=== PATIENT | female | born 1970 | race Caucasian/White ===

== ENCOUNTER 2016-10-15 06:10 | Day surgery (SDC) | payer MEDICARE, OTHER ==
[2016-10-14 14:16] LABS: HEMATOCRIT 42.1 % (36.0-48.0); HEMOGLOBIN 14.1 g/dL (12.0-16.0)
[2016-10-14 14:29] LABS: BUN (BLOOD UREA NITROGEN) 10 MG/DL (6-23); CALCIUM, SERUM 9.8 MG/DL (8.5-10.4); CHLORIDE, SERUM 107 MMOL/L (96-112); CO2 (CARBON DIOXIDE) 28 MMOL/L (24-34); CREATININE 0.89 MG/DL (0.55-1.02); GFR AFRICAN AMERICAN 89 ML/MIN (>=60); GFR NON AFRICAN AMERICAN 77 ML/MIN (>=60); GLUCOSE, SERUM 106 MG/DL (60-99); POTASSIUM, SERUM 4.4 MMOL/L (3.5-5.3); SODIUM, SERUM 144 MMOL/L (135-148)
--- NOTE | ~2016-10-15 | OP ---
Record Of Operation [facility] [address] [place]. [address] NAME: RICHA LOPEZ : 66 STATUS : [facility]#: [id number] AGE: 46 ADM/REG DATE : 10/15/16 MR#: [id number] REPORT SERV DATE: 10/15/16 DICTATED BY: CLAY TAYLOR DATE: 10/15/16 REPORT STATUS : Draft TRANSCRIBED BY: MODL DATE: 10/15/16 DATE OF PROCEDURE: PREOPERATIVE DIAGNOSIS: Cervical spondylosis, spinal stenosis, intractable radiculopathy, left side, C5-6 and 6-7. POSTOPERATIVE DIAGNOSIS: Cervical spondylosis, spinal stenosis, intractable radiculopathy, left side, C5-6 and 6-7. PROCEDURES: 1. Microscopic and navigation-assisted surgery. 2. Anterior cervical diskectomy, foraminotomy, C5-6 and C6-7. 3. Anterior interbody fusion with cortical cancellous allograft, C5-6 and C6-7. 4. Anterior segmental spinal instrumentation with Venture plating, C5-7. SURGEON: Clay Taylor D.O. CUTTER GRIND TOOL TECHNICIAN: Brock Voss. ANESTHESIA: General. BLOOD LOSS: 20 mL. INDICATIONS FOR SURGERY: A 46-year-old female with a severe left shoulder and arm pain and some neck pain for many months, in fact it started in 2012 following an injury. She has just progressively worsened but recently has become totally intractable with 9/10 pain on a daily basis. When seen in the office, she had obvious radiculopathy on the left side. There was a loss of brachioradialis and triceps reflex. There was weakness of the wrist extensors and flexors. It was graded 4/5. X-rays reveal spondylosis and oblique images reveal foraminal narrowing at C5-6 and C6-7. MRI was obtained showing spondylosis and disk herniation/calcified disc fragment and foraminal stenosis rather severe at C5-6 and C6-7. Having failed conservative care with the above findings, the patient was brought to the surgery for anterior cervical diskectomy, interbody fusion with allograft, and instrumentation at C5 to C7. Prior to surgery, risks, benefits, alternatives, and expectations have been discussed in great detail. Consent form has been signed. Please also note because of the complexity of surgery and the need to identify correct level of surgery intraoperatively as well as desire to carry out the safest and most precise dissection, I felt that intraoperative navigation was mandatory. The patient was brought to the operative suite. General anesthetic including endotracheal intubation was administered. She was placed supine on the fluoroscopic Aneudy spine frame. General endotracheal intubation was administered. She was in a supine position on the Aneudy spine frame. A small bolster was placed behind the shoulders. The neck was slightly extended. The scalp was painted with Betadine solution. [place] three-point fixation attached to the skull using 60 pounds torque in standard position. [facility] Record Of Operation [facility] [address] [place]. [address] NAME: RICHA LOPEZ : 66 STATUS : [facility] PAT#: [id number] AGE: 46 ADM/REG DATE : 10/15/16 MR#: [id number] REPORT SERV DATE: 10/15/16 DICTATED BY: CLAY TAYLOR DATE: 10/15/16 REPORT STATUS : Draft TRANSCRIBED BY: KINGSLEY DATE: 10/15/16 navigational registration frame was attached to the [place]. Isolation drapes were placed. The neck was scrubbed with Hibiclens solution. DuraPrep was painted. Sterile drapes applied. Intraoperative CT scan with O-arm obtained, CT information was used to register the navigational system. With navigational assistance, I identified the C5-6 and C6-7 level. At the mid body of C6, a left-sided transverse 2.5 cm Vargas-Del Rosario incision was carried out. The platysma muscle was incised in line with the skin incision. The superficial layer of the deep cervical fascia was released along the anterior border of the sternocleidomastoid. Blunt dissection was carried out to the retropharyngeal space. The microscope was sterilely draped and used throughout the remainder of the procedure. Once the wound was opened, we re-identified the correct level of the surgery. [place] distractor pins were placed in the body of C6 and C7 initially. I incised the anterior longitudinal ligament. I debrided the osteophyte spurs along the endplates and debrided this anteriorly. I then slowly opened the disk space with curettes and rongeurs and carried out diskectomy all the way back to the posterior longitudinal ligament. The uncinate processes were definitely hypertrophied and foraminal decompression was carried out by using a cutting bur, a 3 mm and 2 mm rocio bur and a 1 mm Kerrison rongeur which was used to take down the entire posterior longitudinal ligament. After the decompression was completed, the wounds were irrigated. The width, depth, and height of the disk space was measured and a wedge-shaped cortical cancellous allograft was inserted in the midline. Traction was released locking the graft in good position. I then moved to C5-6 and repeated the same identical steps with diskectomy, foraminotomy, interbody fusion. Finally, a 6-hole Venture plate was placed over the anterior bodies of C5, 6, and 7. It was properly centered in the midline. Six holes were drilled. The locking screws inserted, providing rigid stability. Intraoperative AP and lateral x-rays were taken showing good position of all implants, good hoahaoism of disk height, and increase in lumbar and cervical lordosis. The platysma muscle was closed with a running 3-0 Vicryl suture. The subcutaneous tissue was closed with 3-0 Vicryl suture. Subcuticular 4-0 PDS used for skin closure. Sterile dressings applied. The patient was then awakened, extubated, and taken to the recovery room in satisfactory condition having tolerated the procedure well. Sponge, needle, and instrument counts were correct. No intraoperative complications noted. SH/KINGSLEY Clay Record Of Operation [address] [address] NAME: RICHA LOPEZ : 66 STATUS : [facility] PAT#: [id number] AGE: 46 ADM/REG DATE : 10/15/16 MR#: [id number] REPORT SERV DATE: 10/15/16 DICTATED BY: CLAY TAYLOR DATE: 10/15/16 REPORT STATUS : Draft TRANSCRIBED BY: MODL DATE: 10/15/16 Sudeep Taylor / [id number] CC: Sudeep Christianson M.D.
[~2016-10-15 06:10] MED LIST: ACET500CAP PO; ALEVE220 MG PO; BC HEADACHE PO; FLEX PO; LIOR10 PO; MOTRIN IB200 MG PO; NORCO1 TA1 PO; TURMERIC; [UNRECOGNIZED DRUG - OTHER]
[2016-10-15 07:01] LABS: AMPHETAMINES (NOT ORD) NEG (NEG); BARBITURATES (NOT ORDERED NEG (NEG); BENZODIAZEPINES (NOT ORD) NEG (NEG); CANNABINOIDS (THC) NEG (NEG); COCAINE (NOT ORDERED) NEG (NEG); OPIATES POS (NEG); PHENCYCLIDINE(PCP) NEG (NEG); TRICYCLICS NEG (NEG)
== END 2016-10-15 16:55 | disposition home or self-care (01) ==
LOC: SDC 06:10
PROVIDERS: Orthopaedic Surgery Orthopaedic Surgery of the Spine
PROC: 0RG20K0 Fusion of 2 or more Cervical Vertebral Joints with Nonautologous Tissue Substitute, Anterior Approach, Anterior Column, Open Approach (ICD-10-PCS; principal; 2016-10-15 07:45)
DX: M47.22 Other spondylosis with radiculopathy, cervical region (principal); M43.02 Spondylolysis, cervical region; M48.02 Spinal stenosis, cervical region; M50.322 Other cervical disc degeneration at C5-C6 level; M50.323 Other cervical disc degeneration at C6-C7 level; E66.9 Obesity, unspecified; Z79.82 Long term (current) use of aspirin; Z79.891 Long term (current) use of opiate analgesic; Z79.1 Long term (current) use of non-steroidal anti-inflammatories (NSAID); Z87.891 Personal history of nicotine dependence
CPT/HCPCS: 80048; 80305; 82962; 84703; 85014; 85018; 87641; 88304; 88311; 93005; A9270-GY; C1713; C1768; J0690; J1170; J2250; J2270; J2370; J2405; J2710; J3010